=== PATIENT | male | born 1955 | race Caucasian/White ===

== ENCOUNTER 2021-08-16 11:48 | Emergency (ER) | payer BC, OTHER ==
[2021-08-16] MEDS ORDERED: Apixaban 5 MG Tab PO ONE ×2 (12:47→14:59)
[2021-08-16] MEDS ORDERED: fentaNYL 100 MCG/2 ML SDV IVPUSH ONE (13:07)
[2021-08-16] MEDS ORDERED: Midazolam 1 MG/ML 5 ML SDV IVPUSH ONE (13:07)
[2021-08-16] MEDS ORDERED: Midazolam 1 MG/ML 2 ML SDV IVPUSH ONE ×2 (13:12→13:20)
[2021-08-16] MEDS ORDERED: Amiodarone 200 MG Tab PO ONE ×2 (14:32→14:58)
== END 2021-08-16 16:00 | disposition home or self-care (01) ==
LOC: JD.ED 11:48
DX: I48.91 Unspecified atrial fibrillation (principal); Z88.0 Allergy status to penicillin; Z79.82 Long term (current) use of aspirin; Z79.899 Other long term (current) drug therapy; Z79.01 Long term (current) use of anticoagulants
CPT/HCPCS: 36415; 71045; 80053; 83735; 84443; 84484; 85025; 85610; 85730; 92960; 93005; 96374; 96375; 99285; A9270; J0282; J2250; J3010; 93010; 99284

== ENCOUNTER 2023-09-15 10:42 | Day surgery (SDC) | payer MEDICARE, BC ==
[~2023-09-15 10:42] MED LIST: Cefuroxime 10 MG/ML SYRINGE EYELF SCH
[2023-09-15] MEDS: Polymyxin B/Trimethoprim 10 ML Bottle EYELF SCH (11:49)
[2023-09-15] MEDS: Brimonidine 0.2% Ophth Soln 5 ML Bottle EYELF SCH (11:52)
[2023-09-15] MEDS: Phenylephrine 2.5% Ophth Soln 2 ML Bot EYELF SCH (11:56)
[2023-09-15] MEDS: Tropicamide 1% Ophth Soln 3 ML Bottle EYELF SCH (11:58)
[2023-09-15] MEDS: Lidocaine 1% PF 2 ML SDV INJECT SCH (12:21)
[2023-09-15] MEDS: Tetracaine HCl/PF 0.5% 4 ML Bottle EYEBOTH SCH (12:21)
[2023-09-15] MEDS: Pilocarpine 4% Ophth Soln 15 ML Bot EYELF SCH (12:22)
== END 2023-09-15 13:25 | disposition home or self-care (01) ==
LOC: JD.SDS 10:42
PROVIDERS: ATTEND Ophthalmology
DX: H25.811 Combined forms of age-related cataract, right eye (principal); H21.81 Floppy iris syndrome; H21.42 Pupillary membranes, left eye; I10 Essential (primary) hypertension; E78.00 Pure hypercholesterolemia, unspecified; Z79.899 Other long term (current) drug therapy; Z88.5 Allergy status to narcotic agent
CPT/HCPCS: 66982; A9270; J3490

== ENCOUNTER 2023-11-17 12:57 | Day surgery (SDC) | payer MEDICARE, BC ==
[2023-11-17] MEDS: Polymyxin B/Trimethoprim 10 ML Bottle EYERT SCH (13:34)
[2023-11-17] MEDS: Brimonidine 0.2% Ophth Soln 5 ML Bottle EYERT SCH (13:38)
[2023-11-17] MEDS: Phenylephrine 2.5% Ophth Soln 2 ML Bot EYERT SCH (13:43)
[2023-11-17] MEDS: Tropicamide 1% Ophth Soln 3 ML Bottle EYERT SCH (13:48)
[2023-11-17] MEDS: Tetracaine HCl/PF 0.5% 4 ML Bottle EYEBOTH SCH (14:37)
[2023-11-17] MEDS: Lidocaine 1% PF 2 ML SDV INJECT SCH (15:00)
[2023-11-17] MEDS: Cefuroxime 10 MG/ML SYRINGE EYERT SCH (15:17)
[2023-11-17] MEDS: Pilocarpine 4% Ophth Soln 15 ML Bot EYERT SCH (15:18)
== END 2023-11-17 15:25 ==
LOC: JD.SDS 12:57
PROVIDERS: ATTEND Ophthalmology
DX: H25.811 Combined forms of age-related cataract, right eye (principal); H21.81 Floppy iris syndrome; H21.41 Pupillary membranes, right eye; E78.2 Mixed hyperlipidemia; Z79.899 Other long term (current) drug therapy
CPT/HCPCS: A9270-GY; J0697; J3490